=== PATIENT | female | born 1980 | race Caucasian/White ===

== ENCOUNTER 2019-07-28 14:49 | Emergency (ER) | payer OTHER, SELFPAY ==
--- NOTE | 2019-07-28 15:10 | ED.GENADULT ---
HPI - General Adult General Chief complaint: Upper Respiratory Infection Stated complaint: congestion sore throat Time Seen by Provider: 07/28/19 15:26 Source: patient and RN notes reviewed Mode of arrival: ambulatory Limitations: no limitations History of Present Illness HPI narrative: This patient has had a 3-day history of a nonproductive cough without chest pain or shortness of breath. She is also had rhinorrhea with postnasal drip and sinus pressure headache over the bilateral frontal sinus areas. She has not had any ear pain or drainage from the ears. She has had no rashes. She has had a feeling of chilling although she has not had a fever. She has not missed work yet due to this problem. She has had no known exposure to anyone with strep throat, mono, influenza, bronchitis, pneumonia that she is aware of. She has not been traveling. She has had no other symptoms. There is been no nausea, no vomiting, no diarrhea. Her eating and drinking have remained normal. No family members are ill. Related Data Home Medications Medication Instructions Recorded Confirmed aripiprazole 2 mg PO DIRECTED 07/28/19 07/28/19 ergocalciferol (vitamin D2) 1,250 mcg PO DIRECTED 07/28/19 07/28/19 [Vitamin D2] norgestimate-ethinyl estradiol 1 tablet PO DAILY 07/28/19 07/28/19 [Sprintec (28)] venlafaxine 75 mg PO DIRECTED 07/28/19 07/28/19 Allergies Allergy/AdvReac Type Severity Reaction Status Date / Time No Known Allergies Allergy Mild Verified 06/17/15 10:41 Review of Systems Review of Systems: Narrative: CONSTITUTIONAL: Denies fever, chills, or sweats. Noncontributory except as pertains to the past medical history and the history of present illness. EYES: Denies visual changes, redness, or discharge. ENT: Denies rhinorrhea, congestion, sore throat, or otalgia. CARDIOVASCULAR: Denies chest pain, palpitations, or edema. RESPIRATORY: Denies cough or dyspnea. GASTROINTESTINAL: Denies abdominal pain, nausea, vomiting, or diarrhea. GENITOURINARY: Denies dysuria or hematuria. SKIN: Denies rash or itching. MUSCULOSKELETAL: Denies back pain, joint pain, or myalgia. NEUROLOGIC: Denies headache, numbness, or weakness. PSYCHIATRIC: Denies anxiety or depression. PMFSH Comments At time of signature, I have reviewed and agree with nursing past medical, surgical, social, and family history.Please see nursing chart for further information. There is no relevant family history pertinent to the presenting complaint. Exam Narrative: Exam Narrative: GENERAL: Well-appearing, well-nourished, and in no acute distress. HEAD: Normocephalic, atraumatic. No palpation tenderness over the frontal, maxillary, mastoid sinus areas. EYES: PERRLA and EOMI. EARS: TM's clear bilaterally and the canals are clear. NOSE: Nares have edematous nasal mucosa with purulent rhinorrhea and postnasal drip. THROAT:Mucous membranes moist.Oropharynx is not erythematous no exudates are present. NECK: Supple. No adenopathy of the neck, supraclavicular, axillary, or inguinal areas. RESPIRATORY: No respiratory distress. Airway patent. Respirations non-labored. There are rhonchi in the upper and in the midlung abreu, but there are no wheezes, no rales, no retractions, no use of accessory muscle respirations. Patient's not cyanotic and not dyspneic. Pulse ox on room air is 97% current temperature is 97.7. She has a loose wet cough during the exam. HEART: Regular rate and rhythm. No murmur heard. Normal peripheral pulses. ABDOMEN: Soft, nontender, nondistended, normal active bowel sounds.No masses. No rebound or guarding, No organomegaly. There is no CVA pain. No pain McBurney's point. Patient is a negative Spangler sign and negative Rovsing sign. There are no pulsatile masses no audible bruits. EXTREMITIES: No clubbing/cyanosis/ edema. Normal strength & range of motion. SKIN: Warm, dry.Normal color. No rash or lesions. Patient is well-nourished well-hydrated and has moist
[2019-07-28 15:23] VITALS: BP 141/102; PULSE 98; RESP 16; TEMP 36.5; O2SAT 97
== END 2019-07-28 15:35 | disposition home or self-care (01) ==
PROVIDERS: Emergency Provider Family Medicine
DX: J40 Bronchitis, not specified as acute or chronic (principal); J01.10 Acute frontal sinusitis, unspecified; F32.9 Major depressive disorder, single episode, unspecified
CPT/HCPCS: 99203; G0463